=== PATIENT | male | born 1990 | race Caucasian/White ===

== ENCOUNTER 2021-02-16 15:59 | Emergency (ER) | payer OTHER ==
[~2021-02-16] VITALS: Ht 180.3 cm; Wt 79.4 kg
[2021-02-16] MEDS ORDERED: LORATIDINE 10 M10 M1 PO (16:14)
[2021-02-16] MEDS ORDERED: QUETIAPINE FUMA25 MG PO (16:14)
[2021-02-16] MEDS ORDERED: VISTARIL 25 MG25 M1 PO ×2 (16:59→17:09)
[2021-02-16 17:06] VITALS: BP 141/70
== END 2021-02-16 17:07 | disposition home or self-care (01) ==
LOC: M.ERS 15:59
DX: F41.9 Anxiety disorder, unspecified (principal); Z79.899 Other long term (current) drug therapy